=== PATIENT | male | born 1950 | race Hispanic/Latino ===

== ENCOUNTER 2025-06-08 16:39 | Inpatient (IN) | payer BC, OTHER, MEDICARE, SELFPAY ==
[2025-06-07 16:19] VITALS: BP 172/96
[2025-06-07 17:14] LABS: Hematocrit 44.5 % (39.0-52.0); Hemoglobin 15.3 g/dL (13.0-18.0); Mean Corp Hgb Conc. 34.4 g/dL (33.0-37.0); Mean Corpuscular Volume 89.2 fL (80.0-94.0); Nucleated Red Blood Cells % 0 % (-); Platelet Count 231 10^3/uL (130-400); Red Cell Dist. Width 13.9 % (11.5-14.5)
[2025-06-07 17:24] LABS: INR 1.11; PT 14.1 Sec (11.4-14.6)
[2025-06-07 17:25] LABS: APTT 25.0 Sec (23.4-35.0)
[2025-06-07 17:27] LABS: ALT (SGPT) 31 U/L (0-50); AST (SGOT) 29 U/L (17-59); Albumin 4.2 g/dl (3.5-5.0); Alkaline Phosphatase 57 U/L (38-126); Blood Urea Nitrogen 22 mg/dl (9-20); Calcium 9.6 mg/dl (8.4-10.2); Carbon Dioxide 28 mmol/L (22-30); Chloride 107 mmol/L (98-107); Glucose 96 mg/dl (70-99); Magnesium 1.8 mg/dl (1.6-2.3); Potassium 4.2 mmol/L (3.5-5.1); Sodium 140 mmol/L (135-145); Total Protein 7.4 g/dl (6.3-8.2); eGFR > 60.00
[2025-06-07 17:30] VITALS: BP 150/82
[2025-06-07 17:38] LABS: Troponin I 0.020 ng/ml
--- NOTE | 2025-06-07 17:51 | ED.CVA ---
History of Present Illness
General
Chief Complaint: CVA/TIA Symptoms
Source: patient and spouse
Exam Limitations: none
Time Seen by Provider: 06/07/25 16:44
Onset of Stroke Symptoms
Onset of symptoms known: Yes
Date of onset of symptoms: 06/07/25
History of Present Illness
History of Present Illness:
Note:
CHIEF COMPLAINT(S)
Difficulty speaking and confusion.
HISTORY OF PRESENT ILLNESS
The patient is a 74-year-old male who presented with difficulty speaking and confusion. According to his , the patient was last seen speaking normally at around 8:00 AM and experienced the onset of these symptoms by noon. He was unable to
complete an eye examination at [facility] due to impaired communication that was to occur around 12pm. He then visited his at around 2 PM and she states he did not seem right and then and had difficulty describing his interactions at [facility].
The patient has a history of two previous strokes, with speech difficulties resolving in the past. He reports no current weakness in his arms or legs and has no headache, chest pain, or shortness of breath at this time. The patients notes
issues recalling personal details such as his details and address. The last known stroke or transient ischemic attack was in May 2022. He did take 81 mg of aspirin earlier
ADDITIONAL HISTORY OBTAINED FROM SOURCES OTHER THAN THE PATIENT
According to the patients spouse, the patient was found to have slurred speech and was confused about recalling personal details.
PAST MEDICAL AND SURGICAL HISTORY
The patient has a history of two strokes, one potentially categorized as a transient ischemic attack, last occurring in May 2022.
CHRONIC MEDICAL CONDITIONS SIGNIFICANTLY AFFECTING CARE
Previous strokes and transient ischemic attack.
MEDICATIONS
The patient reportedly takes a low dose of aspirin.
PHYSICAL EXAM
General: Alert, but confused and disoriented.
Skin: Warm, dry.
Head: Normocephalic, atraumatic.
Neck: Supple, trachea midline.
Eye, Ears, Nose, Mouth, and Throat: Oral mucosa moist.
Cardiovascular: Normal peripheral perfusion, No edema.
Respiratory: Respirations are non-labored.
Gastrointestinal: Abdomen nondistended.
Back: Normal range of motion, Normal alignment.
Musculoskeletal: Normal range of motion, normal strength.
Neurological: The patient exhibits a dense aphasia, no focal motor deficits, no pronator drift, normal [id number] testing, normal solderer assembly repair strength, and no ataxia.
Psychiatric: Cooperative, appropriate mood & affect.
PROBLEM LIST
Acute:
- Difficulty speaking (Aphasia)
- Confusion
Chronic:
- Previous cerebrovascular accidents (strokes)
PLAN
- Obtain a CT scan of the head with contrast to evaluate for potential cerebrovascular issues, including checking for blocked vessels or brain bleeding.
DIFFERENTIAL DIAGNOSIS
The Differential Diagnosis includes, in no particular order and is not limited to:
- Ischemic Stroke
- Transient Ischemic Attack (TIA)
- Intracerebral Hemorrhage
- Brain Tumor
- Traumatic Brain Injury
- Alzheimers Disease
- Vascular Dementia
- Hypoglycemia
- Medication Side Effects
- Infectious Encephalitis
CARE-UPDATE
06/07/25 - 17:59
The plain CAT scan shows no bleeding, and while the blood vessel CAT scan reveals no large vessel clots, poor perfusion in a part of the brain is confirmed by a perfusion study.. The patient is outside the treatment window for TNK due to high risk,
and a stroke is confirmed unless symptoms resolve. Treatment now includes administering a full dose of aspirin and an initial 600 mg Plavix load after consultation with the neurologist as a precautionary measure against further clotting. Plan to
monitor overnight, with neurologist reviewing potential addition of further medications, and objectives for improvement acknowledged.
Disposition:
SUMMARY OF ENCOUNTER
A 74-year-old male presented with acute aphasia. His reported that he was last seen speaking normally at 8:00 AM, placing him outside the treatment window for Tenecteplase (TNK). A CT angiogram indicated no large vessel occlusion, and the
perfusion study suggested a stroke. Previous records, including a discharge summary from May 2022, were reviewed. The emergency management team consulted with Dr. Sharpe from the [facility], who confirmed there were no lesions amenable
to intervention. Upon reassessment, the patients aphasia slightly improved, with his initial stroke score reducing from 5 to 3. The patient spouse prefers lower dosing on Plavix, I think 300 mg is a reasonable compromise at this point pending
neurology evaluation
DISPOSITION
Admit for continued monitoring and evaluation by neurology.
ASSESSMENT
Suspected stroke without large vessel occlusion based on imaging and symptomatology.
EMERGENCY TREATMENTS ADMINISTERED
Administered 300 mg loading dose of clopidogrel per neurology recommendation, as the higher dose of 600 mg was of concern to the patients ; continued use of aspirin, having taken 81 mg previously.
MANAGEMENT OF THE PATIENTS CARE WAS DISCUSSED WITH
Care management was discussed with Dr. Sharpe from the [facility] team.
REASSESSMENT
The patients aphasia slightly improved with a reduction in the stroke score from 5 to 3.
PLAN
To admit for ongoing monitoring and subsequent evaluation by neurology.
INDEPENDENT REVIEW OF LABS AND INTERPRETATION OF TESTS
- My independent review of CBC and CMP is normal.
- My independent interpretation of troponin is negative.
MEDICATION RECONCILIATION
- Clopidogrel 300 mg loading dose administered.
- Aspirin 81 mg already taken.
MEDICAL DECISION MAKING
- Number and Complexity of Problems Addressed:
Chronic conditions affecting care include previous cerebrovascular accidents (strokes) and the differential diagnosis considered were ischemic stroke, transient ischemic attack (TIA), intracerebral hemorrhage, brain tumor, traumatic brain injury,
Alzheimers disease, vascular dementia, hypoglycemia, medication side effects, infectious encephalitis.
- Data:
Category 1:
- Non-emergency department records reviewed, including previous discharge summaries.
- Clinical information was obtained from an independent historian, the patients .
Category 3:
- Discussion of management with Dr. Sharpe from the [facility] team.
- Risk:
Prescription medication was prescribed, including clopidogrel and continued aspirin administration.
DIAGNOSIS
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
- History of cerebrovascular accidents [Z86.73].
Past History
Past History
ED Past Medical History: CVA (October 2013 leading to aphasia and right foot drop), HTN, Hypercholesterolemia, NIDDM, Hypothyroidism and Other (Erectile dysfunction)
ED Past Surgical History: Orthopedic (Right knee surgery, left carpal tunnel surgery) and Other (Herniorrhaphy)
Social History
Tobacco: Non-smoker
Alcohol: Occasional
Drug: None
Personal:
Living: with family
Employment: Retired
Family History
Family History: Other (Reviewed and noncontributory)
Phy Exam
Physical Exam
Physical Exam:
.
Scores
NIH Stroke Score
Level of Consciousness: 0 - Alert
LOC Questions: 2-Neither correct
LOC Commands: 0-Performs both correctly
Best Horizontal Gaze: 0-Normal
Visual Cuello: 0=Normal, no visual loss
Facial Palsy: 0=Normal, symmetrical
Motor - Right Arm: 0=No drift 10 seconds
Motor - Left Arm: 0=No drift 10 seconds
Motor - Right Le-No drift 5 seconds
Motor - Left Le-No drift 5 seconds
Limb Ataxia: 0-Absent
Sensation: 0-Normal
Best Language: 2-Severe aphasia
Dysarthria: 0-Normal
Extinction and Inattention: 0-No abnormality
NIH Total Score:: 4
Course
Orders/Labs/Results
Orders:
Orders
06/07/25 17:01
CT BRAIN PERF STROKE ALERT Urgent
Comment:
Reason For Exam: aphasia
CT HEAD STROKE ALERT W/o Cont Urgent
Comment:
Reason For Exam: aphasia
CT HEAD/NECK ANG STROKE ALERT Urgent
Comment:
Reason For Exam: aphasia
Cardiac Monitoring- Treatment ONCE
06/07/25 17:04
Complete Blood Count/With Diff Urgent
Comprehensive Metabolic Panel Urgent
Erythrocyte Sed Rate Urgent
Comment: ADD ON
Glycohemoglobin (HgbA1c) Urgent
Magnesium Urgent
PTT Urgent
Prothrombin Time Urgent
Troponin I Urgent
06/07/25 18:00
Aspirin Chewable [Low Strength Aspirin] 243 mg PO NOW STA
Clopidogrel Bisulfate [Plavix] 300 mg PO NOW STA
06/07/25 18:03
Electrocardiogram (*1) Urgent
Reason for Study: TIA/Stroke
06/07/25 18:48
Admit/Transfer Patient As Directed
Co-Sign Provider:
Level of Care: Observation services
Assign to:: Telemetry
Physician / Group: Cora Isaac
Diagnosis: CVA
Reason for Telemetry: CVA/TIA
Date to Stop Telemetry: 06/10/25
Time to Stop Telemetry: 11:00
PRN Pain Medication Management As Directed
May give lesser potent ordered pain med per pt: Yes
preference::
Protocol:: Medication orders for pain may be administered in a
manner that supports deferring to patient preference
when the pt is:
- Requesting an ordered lesser potent pain medication.
Least to most potent pain medications are defined
as: acetaminophen < NSAID < tramadol < opioids
(morphine, oxycodone, hydromorphone).
- Requesting a lesser dose of the same medication IF
ORDERED.
- Requesting a less intrusive route of administration
if both routes are prescribed by the provider (PO <
IV).
06/07/25 18:49
Code Status As Directed
Resuscitation Status: Do not resuscitate
Reached after discussion with pt or family/Healthcare POA: Yes
Decision communicated with: patient and spouse
06/07/25 18:50
DNR Bracelet Application ONCE
06/07/25 21:18
Acetaminophen [Tylenol/Feverall] 650 mg RECTAL Q4HPRN PRN
Acetaminophen [Tylenol] 650 mg PO Q4HPRN PRN
06/07/25 21:18
Type+Screen Routine
Case Management Consult ONCE
Case Management Consult: Discharge Planning
Comment: stroke/tia
DIETARY IP CONSULT Routine
Reason for Consult: stroke/TIA
NEUROLOGY CONSULT Urgent
Consulting Provider: Refugio Vanegas
Was physician already notified: Yes
Tunnel Kiln Firer Urgent
Urinalysis Routine
MR Brain Without Contrast Routine
Comment:
Reason For Exam: stroke/TIA
Recent pill cam endoscopy?: No
Activity As Directed
Activity Level: As Tolerated
NIH Stroke Scale As Directed
Directions: Per protocol
Comment: every shift and with any change in condition or mental status
Neurological Checks As Directed
Frequency: q4h
Additional Instructions:: q4h x 24h upon admission to the floor, then qshift & with any change in condition
and mental status
Patient Education As Directed
Type: Stroke education packet
Comment: provide to patient and family
Pneumatic Compression Sleeves As Directed
Type: Knee high
Swallow Screening CVA/TIA ONLY As Directed
Comment: NPO until swallowing screening completed
If patient FAILS swallow screening:: NPO, Speech Therapy consult, Aspiration Precautions
If patient PASSES swallow screening, diet:: Cholesterol Lowering
Vital Signs As Directed
Frequency: Per unit guidelines
Call for:: BP greater than 180/105 mmHg or less than 100/60 mmHg
Ot Eval And Treat Routine
Pt Eval And Treat Routine
Activity Level: As Tolerated
Speech Therapy Eval & Treat Routine
DX Deep Vein Thrombosis Video Routine
06/08/25 06:00
Cardiovascular Evaluation IN AM
06/08/25 07:00
Thyroid [[place] Thyroid] 120 mg PO DAILY AT 0700
06/08/25 08:00
Amlodipine [Norvasc] 5 mg PO DAILY
Aspirin Chewable [Low Strength Aspirin] 81 mg PO DAILY
Clopidogrel Bisulfate [Plavix] 75 mg PO DAILY
06/10/25 11:00
DC Protocol for Telemetry ONCE
Abnormal Lab Results
06/07/25
17:04
BUN 22 H mg/dl
(920)
06/07/25 17:04
06/07/25 17:04
Vital Signs
Initial and Last Documented VS:
Initial Vital Signs
Temp Pulse Resp BP Pulse Ox
98.5 F 74 16 172/96 98
06/07/25 16:19 06/07/25 16:19 06/07/25 16:19 06/07/25 16:19 06/07/25 16:19
Last Documented Vital Signs
Temp Pulse Resp BP Pulse Ox
97.6 F 64 18 139/78 97
06/07/25 23:18 06/07/25 23:18 06/07/25 23:18 06/07/25 23:18 06/07/25 23:18
*Pulse Oximetry
SaO2: 98
Oxygen Mode of Delivery: Room air
Patient hypoxic: no
*Critical Care Note
Total Time (30-74mins, 75-104mins- exclusive of procedures): Not Applicable
Update Note
Update Note:
1809 on reassessment the patient is able to name the month and his age and partially describe NIHSS card
ED Attending Note
-
Portions of this chart may have been created with voice recognition software.� Occasional wrong word or��sound alike� substitutions may have occurred due to the inherent limitations of voice recognition software.
Discharge Plan
Departure
Patient Disposition: Admit
Date of Disposition: 06/07/25
Time of Disposition: 17:58
Admit to: Telemetry
Presentation/result/management discussed w/ accepting MD/DO: Hospitalist
Discharge Problem:
Acute cerebrovascular accident (CVA)
Interventions
Interventions:
*Risk Screen - Suicide Last Done: 06/07/25 16:19
*General Assessment Last Done: 06/07/25 17:00
*Neglect/Abuse Screening Last Done: 06/07/25 16:19
*ED COVID-19 Vaccine History Last Done: 06/07/25 21:21
*ED Influenza Vaccine History Last Done: 06/07/25 21:21
[facility] Fall Risk Assessment Tool Last Done: 06/07/25 17:00
*Nursing Disposition Last Done: 06/07/25 21:21
ED- Pulmonary Assessment Last Done: 06/07/25 17:00
ED- Neurological Assessment Last Done: 06/07/25 17:01
ED- Cardiac Assessment Last Done: 06/07/25 17:00
ED Swallowing Screen Last Done: 06/07/25 19:24
--- NOTE | 2025-06-07 18:02 | HPS.HSE ---
Addendum entered and electronically signed by Cora Isaac MD 06/07/25 20:04:
This is an addendum to the H&P written by Andie Garcia on 06/07/2025. �Patient seen and examined independently with PUMP OILER.
74-year-old male past medical history of hypertension, hyperlipidemia, TIAs, left basal ganglia, caudate and anterior limb of the left internal capsule CVA previously , hypothyroidism, presenting with garbled speech and world finding difficulty
noted at 2pm and confusion. Last seen normal 8 am.�
Vital signs show blood pressure of 172/96. On examination no neurological deficits.�
Labs unremarkable.
CT head shows no acute intracranial abnormality. �CTA head and neck shows no hemodynamically significant stenosis. �Moderate calcification of the cavernous internal carotid arteries bilaterally likely without greater than 50% diameter reduction. �CT
head with perfusion shows ischemic penumbra involving the posterior lateral aspect of both cerebral hemispheres also involving the posterolateral left supra lobe extending to the left parieto-occipital junction.
Patient with concern for acute CVA. �Aphasia and confusion improved� Patient not recommended TNK by [facility]. Aspirin and Plavix. �Check MRI brain. �Neurology consulted.
Original Note:
Family Physician
-
Family Physician: * NONE
Chief Complaint
-
garbled speech and confusion
History of Present Illness
Patient is a 74-year-old male with past medical history significant for essential hypertension, hyperlipidemia, hypothyroidism and Hx CVA who presented to [facility] ED for evaluation of garbled speech and confusion. at bedside to assist in HPI.
Patient was last known at baseline at approximately 0800 this morning. Sometime between 12-1 patient went to 's work and had some mild confusion, she went home early and he had increased confusion and garbled speech. He notes he was having and
still having difficulty word finding. Denies any fever, chills, dizziness, vision deficits, chest pain, palpitations, weakness or observed facial droop.
Medical History
Past Medical History
Past Medical History: Reports Other
Additional Past Medical History:
essential hypertension
hyperlipidemia
hypothyroidism
Hx CVA
Past Surgical History: Reports Other
Additional Past Surgical History:
Hernia repair
bilateral knee Surgery
R Carpal tunnel 2014
tonsillectomy
Social History
Tobacco: Non-smoker
Alcohol: None
Drug: None
Personal:
Living: With Family
Employment: Retired
Family History
Family History: Not pertinent
Allergies / Home Medications
Allergies reflects when Allergies were last updated in [employer].
Home Medications with original date entered in [employer]
Allergy/Medication List:
Allergies
Allergy/AdvReac Type Severity Reaction Status Date / Time
No Known Allergies Allergy Verified 06/07/25 16:18
Home Medications
thyroid (pork) 60 mg tablet ([place] Thyroid) 120 mg PO DAILY AT 0700 Thyroid 09/12/14
cholecalciferol (vitamin D3) 50 mcg (2,000 unit) tablet 2,000 units PO DAILY Supplement 04/11/21
amlodipine 5 mg-olmesartan 20 mg tablet 1 tab PO DAILY Blood pressure 06/14/22
berberine-herbal comb no.18 capsule 1 cap PO DAILY Supplement 06/14/22
coenzyme Q10 100 mg capsule (Co Q-10) 100 mg PO DAILY Supplement 06/14/22
aspirin 81 mg chewable tablet 81 mg PO DAILY 30 days #30 tabs 06/16/22
Review of Systems
-
History Source: Patient
Constitutional: Denies Fever or Chills
EENT: Denies Sore Throat
Respiratory: Denies Cough, Hemoptysis or Trouble Breathing
Cardiac: Denies Chest Pain, Diaphoresis, Palpitations or Syncope
Abdomen/GI: Denies Abdominal Pain, Nausea, Vomiting or Diarrhea
: Denies Dysuria, Frequency or Urgency
Musculoskeletal: Denies Joint Pain
Skin: Denies Rash
Neurological: Reports Headache (headache in moring last 3 days ) and Other (confusion, garbled speech ); Denies Dizzy
Physical Exam
Vital Signs
Vital Signs
Temp Pulse Resp BP Pulse Ox
98.5 F 69 15 150/82 98
06/07/25 16:19 06/07/25 17:45 06/07/25 17:45 06/07/25 17:30 06/07/25 17:52
Physical Exam
General: Well Developed, Well Nourished, No Apparent Distress, Comfortable and Obese
HEENT: NormoCephalic, Moist mucous membranes, PERRLA, Nose Appears Normal and Ears Appear Normal
Respiratory: Clear and Non Labored Respirations; No Wheezes, Rales or Rhonchi
Cardiac: S1/S2 and Regular Rhythm; No Murmur, Rub, Gallop or Peripheral Edema
GI: Soft, Non Tender, Non Distended and Normal Bowel Sounds
Musculoskeletal: No Clubbing and No Cyanosis
Skin: Warm and IV/Catheter Site
Neuro: Awake, AO x 3, No Motor Deficits, Nonfocal/grossly intact, No Sensory Deficits and Other (expressive aphasia ); No Slurred Speech, Facial Droop or Tremors
Psych: Calm
Laboratory Results
-
06/07/25 17:04
06/07/25 17:04
Laboratory Results
PT 14.1 Sec (11.4-14.6) 06/07/25 17:04
INR 1.11 06/07/25 17:04
APTT 25.0 Sec (23.4-35.0) 06/07/25 17:04
Total Bilirubin 0.4 mg/dl (0.2-1.3) 06/07/25 17:04
AST 29 U/L (17-59) 06/07/25 17:04
ALT 31 U/L (0-50) 06/07/25 17:04
Alkaline Phosphatase 57 U/L (38-126) 06/07/25 17:04
Troponin I 0.020 ng/ml 06/07/25 17:04
Data Reviewed
-
CT Scan: Report Reviewed by me (Head CT: o evidence of acute intracranial abnormality; Head/Neck CTA: No evidence for hemodynamically significant stenosis of the common carotid arteries, carotid bulbs, or proximal internal carotid arteries
bilaterally. Moderate calcification of the cavernous internal carotid arteries bilaterally,)
Medical Tests (Nuc Med, Echo, EKG etc): Report Reviewed by me (EKG: SINUS RHYTHM WITH 1ST DEGREE A-V BLOCK)
Lab Data: Labs Reviewed by me
Impression/Plan
-
IMPRESSION/PLAN:
#garbled speech, difficulty word finding and confusion 2/2 CVA vs. infectious process
#Hx CVA
last know at baseline 0800, approximately 1230 mild confusion by approximately 1400 garbled speech, difficulty word finding and confusion present
labs unremarkable
EKG: SINUS RHYTHM WITH 1ST DEGREE A-V BLOCK
Head CT: No evidence of acute intracranial abnormality
Head/Neck CTA: No evidence for hemodynamically significant stenosis of the common carotid arteries, carotid bulbs, or proximal internal carotid arteries bilaterally.
Moderate calcification of the cavernous internal carotid arteries bilaterally, likely without greater than 50% diameter reduction.
No evidence for large vessel occlusion involving the middle cerebral arteries bilaterally.
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
Subtle 2 mm rounded protrusion from the left side of the anterior communicating artery, suggesting a small aneurysm, stable on direct comparison to examination of June 14, 2022.
Calcification and suggestion of significant stenosis involving the proximal V4 portion of the right vertebral artery. Calcification and possible stenosis involving the proximal V4 portion of the left vertebral artery.
Luminal irregularity of the basilar artery with no evidence for high-grade stenosis.
Moderate diffuse luminal irregularity of the posterior cerebral arteries bilaterally. Slight diminishment of enhancement of distal branches of the left posterior cerebral artery, although without a focal cutoff.
- Admit to telemetry
- Consult Neurology
- MRI in AM
- neuro checks and NIH per protocol
- start Plavix and continue aspirin
#essential hypertension
- continue amlodipine-olmesartan
#hypothyroidism
- continue [place] Thyroid
Code status: DNR
DVT prophylaxis: SCDs
[2025-06-07] MEDS: LOW STRENGTH ASPIRIN 243 MG PO (19:09)
[2025-06-07] MEDS: PLAVIX 300 MG PO (19:09)
[2025-06-07 21:27] VITALS: BP 171/86; BMI 29.9
--- NOTE | 2025-06-07 22:30 | PTCARENOTE ---
Recc'd pt from the ED via stretcher; Pt ambulated standby assist into the room, steady gait. AAOx3, mild aphasia noted, NIH = 1, passed swallow screening. NSR on telemetry, lungs clear on RA. Remainder of assessment as documented. Updated on POC,
oriented to unit and call donohue, resting comfortably in bed at this time.
[2025-06-07 23:18] VITALS: BP 139/78
[2025-06-08 03:43] VITALS: BP 117/72
[2025-06-08] MEDS: TYLENOL 650 MG PO (04:47)
[2025-06-08] MEDS: ARMOUR THYROID 120 MG PO (06:28)
[2025-06-08 07:30] VITALS: BP 118/76
[2025-06-08 08:31] LABS: HDL Cholesterol 53 mg/dl; LDL Cholesterol, Calculated 121 mg/dl; Very Low Density Lipoprotein 14 mg/dl (0-30)
--- NOTE | 2025-06-08 09:17 | CON.NEURO4 ---
Addendum entered and electronically signed by Refugio Vanegas MD 06/08/25 18:11:
The patient was seen and examined today along with the nurse practitioner Andie Hassan and I agree with her assessment and management plan. I personally performed the medical decision making of this encounter and my assessment and management
plan is given as below.
The patient is a 74 years old male who presented with complaint of confusion and speech difficulty at around 12:30 PM yesterday on 06/07/2025, which was noted by his .
On neurologic examination the patient had expressive aphasia, right-sided facial droop and a drift in the right upper and lower extremities.
NIHSS was 4. The patient was not a candidate for TNK as he was outside the time window. Today the patient says that his symptoms have improved mildly, however, still he is not at his baseline.
. CT head, CTA head/neck were obtained on arrival and are negative for any acute abnormalities.
. MRI of the brain shows abnormal restricted diffusion involving the left occipital lobe and extending superiorly to the left parieto-occipital junction, compatible with area of acute to subacute infarction.
The patient had multiple acute strokes in the left hemisphere which appear to be embolic, the source of emboli is still undetermined. The risk factors include hypertension hyperlipidemia and age. The patient was not a candidate for TNK as he was
outside the time window.
Recommend 30-day Holter monitoring.
Echocardiogram
LDL goal less than 70.
Aspirin 81 mg daily, Plavix 75 mg daily and atorvastatin 40 mg daily.
Original Note:
Consultation - Neurology 4
-
CONSULTING PHYSICIAN: Refugio Vanegas MD
REFERRING PHYSICIAN: Hospitalists/JENNIFER Saldivar
DICTATED BY: JENNIFER Burns
DATE/TIME OF REQUEST: 06/07/25
DATE/TIME OF CONSULTATION: 06/08/25
Reason for Consultation: Dysarthria and confusion
History of Present Illness:
This is a 74-year-old male who has presented to the hospital on 06/07/25 with report of garbled speech and confusion. Patient has a history of a left frontal ischemic stroke in 2013, and a right frontal and left pontine ischemic stroke prior to
2013. He was evaluated by our inpatient Neurology service in 2021 for speech difficulty and dysarthria.
From previous evaluation by Neurology Dr. Rondon 06/15/22:
'71 year-old unknown-handed male presented to this hospital with acute onset slurred speech and difficulty speaking around 1730 on 06/24/22.
Alteplase administration was discussed in the ER, however, he and his declined treatment.
Due to aphasia, information is mostly obtained from medical records, the patient is able to provide minimal information.
He has a history of a right frontal and left pontine stroke in October of 2013, which left him with some residual word-finding difficulty and right foot weakness/foot drop. He was instructed to take aspirin 81mg daily, but he and his decided to
stop this treatment at some point. Currently, he reports a headache across the front of head and he appears frustrated when he stumbles trying to get his words out. There are no other modifying factors or associated symptoms.
IMPRESSIONS/RECOMMENDATIONS:
Abrupt change in speech, fluctuating with prior history of stroke
2013 MRI of brain demonstrated an acute left frontal, chronic right frontal, and chronic left pontine strokes
MRI of brain performed failed to demonstrate an acute ischemic lesion, instead demonstrating his prior left hemispheric stroke
EEG failed to demonstrate epileptiform activity and instead did suggest left hemispheric slowing compared with contralateral side
Although the patient was a candidate for the use of alteplase, the patient declined this medication. The patient was not a candidate for intra-arterial thrombectomy due to absence of a large vessel occlusion.
Presumption overall is that the patient experienced a transient ischemic attack although symptomatology is of longer duration than would be expected
Agree with initiation of aspirin
Provide clopidogrel with a goal of 21 days of therapy and then discontinue
Provide atorvastatin 80 mg daily as per [place] [employer] guidelines
Goal of normotension
Goal of normoglycemia'
MRI brain 06/15/22 was negative for any acute abnormalities.
Patient reports that yesterday (06/07/25) he woke up in his usual state around 0800. Around 1230 patient's spouse noted that he seemed confused and his speech was garbled. CT head, CTA head/neck were obtained on arrival and are negative for any
acute abnormalities. CT brain perfusion and is suggestive of a 34ml penumbra in bilateral posterior lobes left greater than right. NIHSS was 4 for inability to answer orientation questions and severe aphasia. He was not a candidate for TNK/IAT due
to being outside of the time window. He was loaded with DAPT in the ER. Today (06/08/25), patient reports that his symptoms have improved mildly but are still persisting. He denies any headache, dizziness, vision changes, swallowing difficulty,
numbness, and weakness. He is taking aspirin 81mg daily and denies missing any doses.
Past Medical History: Left caudate, left internal capsule, and left basal ganglia ischemic strokes, HTN, HLD, hypothyroidism, DM, erectile dysfunction
Surgical History: Tonsillectomy, b/l knee surgery, R carpal tunnel release, hernia repair.
Family History: Father- dementia. Mother- stroke.
Social History: Denies tobacco, alcohol, and illicit drug use.
Allergies: No known allergies.
Home Medications: See below.
Review of Symptoms:
Patient denies any fever, headache, chest pain, shortness of breath, GI or symptoms.
�Per the HPI.�All systems are reviewed negative except above.
Physical Exam:
The patient is afebrile, abdomen is nondistended, breathing is unlabored, skin is warm and dry, no edema.
NIH Stroke Scale:
I performed the NIH stroke scale on the patient on 06/07/25 at 0900. The patient scored 5 points on the NIH stroke scale assessment, which were assigned as follows: See below.
Neurologic Examination:
The patient is awake, alert and oriented x 3. He is able to follow commands and answer questions appropriately. There is mild aphasia and mild dysarthria. On cranial nerve assessment, pupils are 3 mm bilateral, round and reactive to light and
accommodation. Visual cuello are full. Extraocular movements are intact. There is very slight right facial asymmetry. Hearing is intact bilaterally to normal conversation volume. Tongue palate and uvula are midline. Motor strengths are 5/5 left
upper and lower extremities and 5-/5 right upper and lower extremities on medical research [place] scale. There is very slight drift in the RUE/RLE. No involuntary movement noted. There was no extinction noted on double simultaneous stimulation.
Coordination is intact by finger to nose bilaterally.
Lab Results: See below.
Neuro Imaging:
1. CT head 06/07/25: No evidence of acute intracranial abnormality. ASPECT score: 10.
2. CTA head/neck 06/07/25: No evidence for hemodynamically significant stenosis of the common carotid arteries, carotid bulbs, or proximal internal carotid arteries bilaterally. Moderate calcification of the cavernous internal carotid arteries
bilaterally, likely without greater than 50% diameter reduction. No evidence for large vessel occlusion involving the middle cerebral arteries bilaterally. 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 Subtle 2 mm rounded protrusion from
the left side of the anterior communicating artery, suggesting a small aneurysm, stable on direct comparison to examination of June 14, 2022. Calcification and suggestion of significant stenosis involving the proximal V4 portion of the right
vertebral artery. Calcification and possible stenosis involving the proximal V4 portion of the left vertebral artery. Luminal irregularity of the basilar artery with no evidence for high-grade stenosis. Moderate diffuse luminal irregularity of the
posterior cerebral arteries bilaterally. Slight diminishment of enhancement of distal branches of the left posterior cerebral artery, although without a focal cutoff.
3. CT brain perfusion 06/07/25: CBF 0ml, Tmax 34ml.
Differentials for the patient's presentation include:
1. Aphasia, dysarthria, and mild right-sided weakness; etiology is possibly a new ischemic stroke versus less likely, recrudescence of old stroke symptoms.
Patient has the following risk factors for their symptoms: Hx stroke, HTN, HLD, age
IV Tenecteplase/IAT candidacy: He was not a candidate for TNK/IAT due to being outside of the time window.
Recommendations:
-Continue DAPT with aspirin 81mg and clopidogrel 75mg daily for 21 days.
-MRI Brain noncontrast pending.
-TTE pending.
-Goal normotension as it is 24 hours since symptom onset.
-LDL goal <70. LDL is 121. Initiate atorvastatin 40mg daily.
-Goal normoglycemia, hbA1c is 5.9.
-NIHSS and neurological checks per unit guidelines.
-Provide patient with a stroke education packet.
-PT/OT/ST evaluations.
-DVT prophylaxis.
Discussed patient care with: Dr. Vanegas, the patient
Vital Signs and Labs
-
Vital Signs and Labs:
Vital Signs
Temp Pulse Resp BP Pulse Ox
97.4 F 62 16 118/76 98
06/08/25 07:30 06/08/25 09:31 06/08/25 07:30 06/08/25 09:31 06/08/25 10:00
Lab Results
06/07/25 17:04
06/07/25 17:04
PT 14.1 Sec (11.4-14.6) 06/07/25 17:04
INR 1.11 06/07/25 17:04
APTT 25.0 Sec (23.4-35.0) 06/07/25 17:04
Sodium 140 mmol/L (135-145) 06/07/25 17:04
Potassium 4.2 mmol/L (3.5-5.1) 06/07/25 17:04
BUN 22 mg/dl (9-20) H 06/07/25 17:04
Glucose 96 mg/dl (70-99) 06/07/25 17:04
Calcium 9.6 mg/dl (8.4-10.2) 06/07/25 17:04
LDL Cholesterol, Calc 121 mg/dl 06/08/25 07:31
Medications
-
Active Medications
Generic Name Dose Route Start Last Admin
Trade Name Freq PRN Reason Stop Dose Admin
Acetaminophen 650 mg 06/07/25 21:18
Acetaminophen 650 Mg Rectal Suppository RECTAL 07/05/25 21:17
Q4HPRN PRN
[place], mild pain, or temp >100.4F
Acetaminophen 650 mg 06/07/25 21:18 06/08/25 04:47
Acetaminophen 325 Mg Tablet PO 07/05/25 21:17 650 mg
Q4HPRN PRN Administration
[place], mild pain, or temp >100.4F
Amlodipine Besylate 5 mg 06/08/25 08:00 06/08/25 09:31
Amlodipine 5 Mg Tablet PO 07/06/25 07:59 5 mg
DAILY PATRICK Administration
Aspirin 81 mg 06/08/25 08:00 06/08/25 09:31
Aspirin 81 Mg Chewable Tablet PO 07/06/25 07:59 81 mg
DAILY PATRICK Administration
Clopidogrel Bisulfate 75 mg 06/08/25 08:00 06/08/25 09:31
Clopidogrel 75 Mg Tablet PO 07/06/25 07:59 75 mg
DAILY PATRICK Administration
Losartan Potassium 50 mg 06/08/25 08:00 06/08/25 09:32
Losartan 50 Mg Tablet PO 07/06/25 07:59 Not Given
On Hold: 06/08/25 09:10 DAILY PATRICK
Sodium Chloride 0 flush 06/07/25 22:00
Sodium Chloride 0.9% (Flush) Syringe IV 07/05/25 21:59
PER PROTOCOL PATRICK
Thyroid 120 mg 06/08/25 07:00 06/08/25 06:28
Thyroid 60 Mg (1 Grain) Tablet PO 07/06/25 06:59 120 mg
DAILY AT 0700 PATRICK Administration
Home Medications
�Medication �Instructions �Recorded
thyroid (pork) 60 mg tablet 120 mg PO DAILY AT 0700 Thyroid 09/12/14
([place]o Thyroid)
cholecalciferol (vitamin D3) 50 2,000 units PO DAILY Supplement 04/11/21
mcg (2,000 unit) tablet
amlodipine 5 mg-olmesartan 20 mg 1 tab PO DAILY Blood pressure 06/14/22
tablet
berberine-herbal comb no.18 capsule 1 cap PO DAILY Supplement 06/14/22
coenzyme Q10 100 mg capsule (Co 100 mg PO DAILY Supplement 06/14/22
Q-10)
aspirin 81 mg chewable tablet 81 mg PO DAILY 30 days #30 tabs 06/16/22
NIH Stroke Score
Subsequent NIH Scale
Date of Subsequent NIH Scale: 06/08/25
Time of Subsequent NIH Scale: 09:00
NIH Stroke Score
Level of Consciousness: 0 - Alert
LOC Questions: 0-Answers both correctly
LOC Commands: 0-Performs both correctly
Best Horizontal Gaze: 0-Normal
Visual Cuello: 0=Normal, no visual loss
Facial Palsy: 1=Minor paralysis
Motor - Right Arm: 1=Drift < 10 seconds
Motor - Left Arm: 0=No drift 10 seconds
Motor - Right Le-Drift < 5 seconds
Motor - Left Le-No drift 5 seconds
Limb Ataxia: 0-Absent
Sensation: 0-Normal
Best Language: 1-Mild aphasia
Dysarthria: 1-Mild slurring
Extinction and Inattention: 0-No abnormality
NIH Total Score:: 5
Modified Ashlie (mRS) Score
Modified Ashlie Scale (mRS): Slight disability. Able to look after own affairs.
Score: 2
Alteplase Contraindication
Inclusion and Exclusion criteria reviewed: Yes
Reasons for NON-Tx with Thrombolytics ABSOLUTE Exclusions: Greater than 4.5 hrs from onset of sxs
IAT Contraindications: NIHSS < 6 and Imaging doesn't show large vessel occlusion as cause of stroke
[2025-06-08] MEDS: NORVASC 5 MG PO (09:31)
[2025-06-08] MEDS: LOW STRENGTH ASPIRIN 81 MG PO (09:31)
[2025-06-08] MEDS: PLAVIX 75 MG PO (09:31)
--- NOTE | 2025-06-08 10:20 | PTOTSP ---
ENTRY TECH Evaluations
No signs concerning for oral or pharyngeal dysphagia or aspiration observed during clinical bedside swallowing evaluation, though patient has risk factors (i.e., concern for acute CVA; chronic CVA).
Patient has a history of mild expressive aphasia impacting verbal and written expression.
Quick Aphasia Battery Form 1 today = 5.65, concerning for moderate aphasia impacting word comprehension (mild), sentence comprehension (severe), word finding (severe), grammatical construction (moderate), speech motor programming (mild), and
repetition (severe). Signs of alexia and agraphia observed.Patient's score is worse than last known baseline (QAB 8.22, mild, in 2021).
Recommend:
1. Regular, Thin Liquids
2. Medications as best tolerated
3. Speech therapy at the acute care level and after D/C if aphasia does not improve.
[2025-06-08 10:56] LABS: Glycohemoglobin (HgbA1c) 5.9 % (4.0-5.9)
[2025-06-08 11:51] VITALS: BP 146/78
[2025-06-08 12:05] VITALS: BP 146/78; BP 149/98; BP 150/88; PULSE 101; PULSE 108; PULSE 79; O2SAT 94
[2025-06-08 12:09] VITALS: BP 146/78; BP 149/98; BP 150/88; PULSE 101; PULSE 79; O2SAT 94
[2025-06-08 15:15] VITALS: BP 143/82
--- NOTE | 2025-06-08 16:16 | CM ---
Addendum entered by Maxine Grimes RN 06/08/25 16:54:
Pt changed to Inpatient status . IMM given explained signed on chart.
Original Note:
Alert awake oriented patient who lives with Gissel in a 2 story home with 5 steps to enter 5 and to bed/bathroom. He is independent in driving and ADLs.No DME.PT indicated acute rehab . Pt declined requested Out pt therapy . has set up
therapy already.JOSE letter give explained
HX of out pt Therapy only
Pharmacy [place]
PCP Dr Carver
PLAN Home with out pt therapy
--- NOTE | 2025-06-08 17:20 | W.PN.HOSP.TC ---
Addendum entered and electronically signed by Harshad Cevallos MD 06/08/25 17:54:
Discussed with neurology, who is recommending aspirin and Plavix for 90 days, then just aspirin alone.
Echocardiogram within normal limits.
Discharge now.
Original Note:
Today's Communication/Plan
-
For echocardiogram
Can be discharged after echocardiogram results
Assessment / Plan
Assessment / Plan
#Acute stroke
#Expressive aphasia
#Stroke induced encephalopathy
Brain MRI confirms subacute�acute stroke in the left occipital lobe, extending to the left parietal�occipital junction
Seen by PT/OT/SPL, who recommends acute rehab
Patient and wishes to be discharged home today
Will order echocardiogram urgently, likely can go home afterwards
Started on atorvastatin 40 mg every afternoon for LDL 121
Hemoglobin A1c 5.9, known prediabetic
Will need dual antiplatelet therapy for 21 days, then likely just Plavix alone, as he was on aspirin prior to admission
Outpatient PT/OT/SPL prescription provided
Family plans to follow-up with Dr. Conway's office in [place]
#Hyperlipidemia
Started atorvastatin as above
#Prediabetes
Hemoglobin A1c 5.9
Recommend carb controlled diet
#Essential hypertension
For permissive hypertension today, can resume home blood pressure medications tomorrow
#Hypothyroidism
Continue [place] Thyroid
DVT prophylaxis�subcu Lovenox
DNR
Updated at bedside 06/08
Total time spent to see the patient on the floor, examine the patient, review data and lab results, discuss treatment plan with patient, nursing staff around 50 minutes.
Physical Exam
General: No acute distress
HEENT: Normocephalic, Atraumatic, EOMI, MMM
Respiratory: Clear to Auscultation bilaterally
Cardiac: Normal S1/S2, Regular Rate and Rhythm
GI: Soft, Nontender, Nondistended, Normal Bowel Sounds
Extremities: No Clubbing, Cyanosis, or Edema
Neuro:
Expressive aphasia noted
Confusion noted
Psych: Calm, Cooperative
Anticipated Discharge: Today
Subjective/Interval History
-
Date of Service: June 08, 2025
Patient continues to have expressive aphasia and confusion. Dysarthria much improved. Denies dysphagia, focal weakness, headache, or vision changes. No fever, no vomiting.
Objective Data
-
Vital Signs:
Vital Signs
Temp Pulse Resp BP Pulse Ox
97.4 F 62 16 118/76 98
06/08/25 07:30 06/08/25 07:30 06/08/25 07:30 06/08/25 07:30 06/08/25 07:30
--- NOTE | 2025-06-08 17:26 | W.DCSUMMARY ---
Discharge Summary
Discharge Data
Date of Admission: 06/07/25
Date of Discharge: 06/08/25
-
Pending Results: No
Hospital Course
Discharge diagnosis:
Acute�subacute stroke
Expressive aphasia
Stroke-induced encephalopathy
Dysarthria
Hyperlipidemia
Prediabetes
Essential hypertension
Hypothyroidism
Consults: Neurology
Brain MRI:
Abnormal restricted diffusion involving the left occipital lobe and extending superiorly to the left parieto-occipital junction, compatible with area of acute to subacute infarction.
Echocardiogram:
1. Normal biventricular size and systolic function, with no regional wall motion abnormalities. Estimated LVEF 60-65%.
2. No significant valve disease.
3. The interatrial septum appears normal and intact, with no evidence of interatrial shunting.
4. No significant change from prior study of 11/10/13.
Hospital course:
74-year-old male with a past medical history of hypertension, prediabetes, and hypothyroidism presented with confusion, expressive aphasia, and dysarthria. He was found to have an acute stroke. He was out of the window for tPA. He was seen in
conjunction with neurology. LDL is 131, he was started on atorvastatin 40 mg every afternoon. He has known prediabetes, his hemoglobin A1c is 5.9. He was seen in conjunction with PT/OT/SPL, who recommended acute rehab. Patient and his family
declined, they wish to go home with home care. Echocardiogram was performed, and was unremarkable. Neurology recommends dual antiplatelet with both aspirin and Plavix for 90 days, then just aspirin alone. He is medically stable and cleared by
neurology for discharge. He needs to follow-up with his PCP in 1 week, neurology in the office in 4 weeks, and cardiology in the office in 2-3 weeks for Holter monitor.
Disposition: Home with home care
Discharge planning: Required 41 minutes
Discharge Plan
-
Patient Disposition: Home (Routine Discharge)
Discharge Diagnosis/Procedures: Acute stroke, expressive aphasia, dysarthria, confusion, hyperlipidemia, prediabetes
Condition: Fair
Diet: Low Fat, Low Cholesterol and Diabetic, Carb Controlled
Activity: As tolerated
Activity Restrictions/Additional Instructions:
Neurology recommends you take both aspirin and Plavix for total of 90 days, then just aspirin alone.
You also need an outpatient heart monitor, called Holter monitor. The cardiology office will reach out to you to arrange for this.
Please establish care and follow-up with neurology in the office in 4 weeks.
Follow-up with your primary care doctor in less than 1 week.
Referrals:
Cas Ledbetter MD [Active, Cardiology] - in two to three weeks
Bryan Carver DO [Family Provider, Family Practice] - in less than 1 week
Prescriptions:
New
atorvastatin 40 mg Tablet
40 mg PO QPM Qty: 30 0RF
clopidogrel 75 mg Tablet
75 mg PO DAILY 88 Days Qty: 88 0RF
Continued
thyroid (pork) [[place] Thyroid] 60 MG tablet
120 mg PO DAILY AT 0700
cholecalciferol (vitamin D3) 2,000 UNITS tablet
2,000 units PO DAILY
amlodipine-olmesartan 5-20 mg tablet
1 tab PO DAILY
coenzyme Q10 [Co Q-10] 100 mg Capsule
100 mg PO DAILY
berberine-herbal comb no.18 Capsule
1 cap PO DAILY
aspirin 81 mg Tablet,Chewable
81 mg PO DAILY 30 Days Qty: 30 0RF
Discharge Orders:
Discharge Patient (As Directed); Ordered 06/08/25
Ordered By: Harshad Cevallos
Discharge Date and Time
Discharge Date/Time: 06/08/25 18:22
Print Language: BOLIVIAN
[2025-06-08] MEDS: LOVENOX 40 MG SC (17:41)
[2025-06-08] MEDS: LIPITOR 40 MG PO (17:41)
--- NOTE | 2025-06-08 18:27 | W.PN.UPDATE ---
Update Note
Progress Note Update
Messaged via [employer] connect about recommendations for patient.
TTE showed normal EF. NO LVthrombus.
CTA significant for diffuse luminal irregularity of the posterior cerebral arteries bilaterally and stensosis of bilateral vertebral arteries that could be cuplrit lesions of L occipital stroke. Carbdioembolic etiology is still possible.
I recommend aspirin 81mg + 75mg plavix daily for 90 days followed by 81mg aspirin alone per SAMPRIS trial. He will need daily high intensity statin. I also recommend a 30 day holter monitor to assess for paroxysmal afib and outpatient neuro
follow-up within 4 weeks.
== END 2025-06-08 18:22 | disposition home or self-care (01) | DRG 65 ==
LOC: 4 EAST ACU 16:39
PROVIDERS: Nurse Practitioner Family; ADMITTING PHYSICIAN Hospitalist; ATTENDING PHYSICIAN Family Medicine; CONSULT PHYSICIAN Psychiatry & Neurology Neurology; EMERGENCY PHYSICIAN Emergency Medicine; FAMILY PHYSICIAN Family Medicine
DX: I63.9 Cerebral infarction, unspecified (principal); G93.40 Encephalopathy, unspecified; R47.01 Aphasia; E78.5 Hyperlipidemia, unspecified; E03.9 Hypothyroidism, unspecified; I11.9 Hypertensive heart disease without heart failure; Z66 Do not resuscitate; Z86.73 Personal history of transient ischemic attack (TIA), and cerebral infarction without residual deficits; Z79.82 Long term (current) use of aspirin; E11.9 Type 2 diabetes mellitus without complications; N52.9 Male erectile dysfunction, unspecified; R29.704 NIHSS score 4; Z82.3 Family history of stroke; Z79.899 Other long term (current) drug therapy
CPT/HCPCS: 0042T; 70450; 70496; 70498; 70551; 80053; 80061; 83036; 83735; 84484; 85025; 85610; 85652; 85730; 86850; 86900; 86901; 92523; 92610; 93005; 93306; 97116; 97163; 97167; 97535; 99285; Q9967

== ENCOUNTER 2025-06-26 11:00 | Outpatient (RCR) | payer BC, OTHER, SELFPAY | END 2025-06-26 23:59 | disposition home or self-care (01) | LOC: ROT 11:00 | PROVIDERS: ATTENDING PHYSICIAN Family Medicine | DX: I69.320 Aphasia following cerebral infarction (principal); I69.322 Dysarthria following cerebral infarction; I69.398 Other sequelae of cerebral infarction; Z73.6 Limitation of activities due to disability | CPT/HCPCS: 92507; 92523; 97110; 97112; 97162; 97167; 97530; 97535 ==